=== PATIENT | female | born 1950 | race Caucasian/White ===

== ENCOUNTER 2016-11-18 11:22 | Outpatient (CLI) ==
[2014-09-30 11:29] VITALS: BMI 21.6
[2016-11-18 11:38] VITALS: BP 129/78; TEMP 96.2
[2016-11-18] MEDS ORDERED: PROLIA SUBCUT STA (11:39)
== END 2016-11-18 11:23 | disposition home or self-care (01) ==
LOC: OPMED 11:22
PROVIDERS: ATTEND Family Medicine
DX: M81.0 Age-related osteoporosis without current pathological fracture (principal)
CPT/HCPCS: 96372

== ENCOUNTER 2017-11-20 10:15 | Outpatient (CLI) | payer OTHER ==
[2014-09-30 11:29] VITALS: BMI 21.6
[2017-11-20 10:47] VITALS: BP 142/79; TEMP 98.4
[2017-11-20] MEDS ORDERED: PROLIA SUBCUT STA (10:57)
== END 2017-11-20 10:16 | disposition home or self-care (01) ==
LOC: OPMED 10:15
PROVIDERS: ATTEND Family Medicine
DX: M81.0 Age-related osteoporosis without current pathological fracture (principal)
CPT/HCPCS: 96372

== ENCOUNTER 2018-05-24 13:05 | Outpatient (CLI) ==
[2014-09-30 11:29] VITALS: BMI 21.6
[2018-05-24 13:35] VITALS: BP 124/72; TEMP 96.8
[2018-05-24] MEDS ORDERED: PROLIA SUBCUT STA (13:39)
== END 2018-05-24 13:06 | disposition home or self-care (01) ==
LOC: OPMED 13:05
PROVIDERS: ATTEND Family Medicine
DX: M81.0 Age-related osteoporosis without current pathological fracture (principal)
CPT/HCPCS: 96372